=== PATIENT | female | born 1965 | race Caucasian/White ===

== ENCOUNTER 2017-07-20 06:31 | Day surgery (SDC) | payer MEDICARE ==
[2017-07-20] VITALS (11 sets, daily range): BP systolic 95–123; BP diastolic 37–76; Ht 170.2 cm; Wt 122.7 kg
[~2017-07-20] VITALS: Ht 170.2 cm; Wt 122.7 kg
--- NOTE | ~2017-07-20 | OP ---
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 POSTOPERATIVE DIAGNOSES: Osteophyte formation and disc herniation of C6-C7 with bilateral C7 radiculopathy and spinal cord compression. PROCEDURE: Anterior cervical discectomy with removal of osteophytes at C6-C7, PEEK interbody cage anterior cervical plate and screws, Biocell bone stem cell allograft, removal of osteophytes. SURGEON: Grace Kemp MD DESCRIPTION OF TECHNIQUE: After induction of general endotracheal anesthesia, the patient was positioned supine on the operating table at the inner scapular roll. The neck was prepped and draped in usual sterile fashion. Fluoroscopic x-ray and freer localized the C6-C7 interspace. A skin incision was carried out from the midline to the sternocleidomastoid muscle. Using a blunt and sharp dissection with Metzenbaum scissors, I proceeded in an avascular plane medial to the carotid sheath. The C6-C7 interspace was confirmed with fluoroscopic x-ray and a spinal needle. The longus colli muscles were elevated from bodies of C6 and C7. A self-retaining retractor was placed deep in longus colli muscles. [place] pins were placed at the bodies of C6 and C7. Disc space was incised with #11 blade. Series of pituitary rongeurs and curettes was used to remove the disc material at C6-C7. The endplates were prepared with curettes. A microscope and Midas Raheel drill were used to remove the osteophytes posteriorly. A Cloward rongeur was used to remove the posterior longitudinal ligament and performed a foraminotomy on both sides. The foramina and the central dura was decompressed well at the conclusion of this. A PEEK interbody cage was placed in the disc space under distraction. Prior to this, the cage was filled with Biocell bone stem cell allograft. After this, a separate anterior cervical plate was used to span the C6-C7 interspace. Self-drilling screws were placed into the bodies of C6 and C7. Locking cam was tightened down over the screw heads. Good position of the hardware was confirmed with fluoroscopic x-ray. Meticulous hemostasis was maintained throughout the wound and the wound was irrigated with copious amounts of Ancef irrigant solution. The platysma and subdermal layer were closed with interrupted 3-0 Vicryl suture. The skin was reapproximated with Steri-Strips and benzoin. A sterile dressing was applied to the wound. The patient was awakened in good condition and taken to recovery. All counts were reported as correct. Estimated blood loss was minimal. TRANSINT:[id number] Voice Confirmation ID: [id number] DOCUMENT ID: [id number] OPERATIVE REPORT [id number] JAIDA ATKINSON JOHN MD at 1606 CC: [id number] DICTATION DATE: 07/25/17 09 DRY PAN FEEDER: 07/25/17 1134 [facility] 07/21/17 [address] [place] [address]
[~2017-07-20 06:31] MED LIST: ASPIRIN EC81 M1 PO; BACLOFEN10 MG PO; COREG6.25 MG PO; CRESTOR10 MG PO; EFFEXOR50 MG PO; HYDROCODONE-APA1 TAB PO; INSULIN PUMP; NEURONTIN600 MG PO; PAROXETINE HCL10 MG PO; PROTONIX40 MG PO; SINGULAIR10 MG PO; VALIUM 2 MG TAB2 MG PO; WELLBUTRIN SR150 MG PO; ZYRTEC10 MG PO
[2017-07-20 07:14] LABS: HEMATOCRIT 40.4 % (36.0-48.0); HEMOGLOBIN 13.4 g/dL (12-16); MCH 27.7 pg (26.0-34.0); MCHC 33.2 g/dL (31.0-37.0); MCV 83.6 fL (80.0-100.0); MEAN PLATELET VOLUME 9.1 fL (7.4-10.4); RBC 4.83 10x6/uL (4.00-5.40); RDW 16.4 % (11.5-14.5); WBC 16.1 10x3/uL (4.8-10.8)
[2017-07-20 07:28] LABS: CALCIUM 8.4 mg/dL (8.5-10.1); CARBON DIOXIDE 20.5 mmol/L (21.0-32.0); CREATININE - SERUM 1.3 mg/dL (0.6-1.3); POTASSIUM - SERUM 3.5 mmol/L (3.5-5.1)
[2017-07-21 04:22] VITALS: BP 131/60
[2017-07-21 07:42] VITALS: BP 102/62
== END 2017-07-21 11:11 | disposition home or self-care (01) ==
LOC: D.SDCHOLD 06:31 → D.OPS 06:31 → D.MS 06:31 → D.SDCHOLD 07:30 → EDSTATUS 07:30 → D.SDCHOLD 09:00 → D.MS 13:40 → D.SDCHOLD 13:40 → D.MS 07-21 11:11 → D.OPS 07-21 11:11
PROVIDERS: Anesthesiology
DX: M54.12 Radiculopathy, cervical region (principal); F17.200 Nicotine dependence, unspecified, uncomplicated; J45.909 Unspecified asthma, uncomplicated; G47.30 Sleep apnea, unspecified; I10 Essential (primary) hypertension; E11.9 Type 2 diabetes mellitus without complications; K21.9 Gastro-esophageal reflux disease without esophagitis; E66.01 Morbid (severe) obesity due to excess calories; Z01.812 Encounter for preprocedural laboratory examination

== ENCOUNTER 2019-01-31 07:24 | Day surgery (SDC) | payer MEDICARE ==
[2019-01-28 14:44] LABS: HEMATOCRIT 42.3 % (36.0-48.0); HEMOGLOBIN 14.4 g/dL (12-16); MCH 29.2 pg (26.0-34.0); MCV 85.8 fL (80.0-100.0); MEAN PLATELET VOLUME 9.3 fL (7.4-10.4); RBC 4.93 10x6/uL (4.00-5.40); RDW 15.8 % (11.5-14.5); WBC 9.8 10x3/uL (4.8-10.8)
[2019-01-28 15:23] LABS: ANION GAP 18.4 mmol/L (8-16); CARBON DIOXIDE 22.1 mmol/L (21.0-32.0); CREATININE - SERUM 1.5 mg/dL (0.6-1.3); POTASSIUM - SERUM 4.5 mmol/L (3.5-5.1)
[~2019-01-31] VITALS: Ht 170.2 cm; Wt 153.2 kg
[2019-01-31] VITALS (20 sets, daily range): BP systolic 116–159; BP diastolic 52–84; Ht 170.2 cm; Wt 153.2 kg
[~2019-01-31 07:24] MED LIST changes: +BUSPAR10 MG PO; +CRESTOR40 MG PO; +EFFEXOR XR75 MG PO; +FENOFIBRATE160 MG PO; +LAMICTAL100 MG PO; +LOTENSIN 10 MG10 MG PO; +REGLAN10 MG PO; -VALIUM 2 MG TAB2 MG PO; +VALIUM5 MG PO; +ZETIA10 MG PO
[2019-01-31] MEDS ORDERED: HYDROCODON-ACE1 EA10 PO (08:10)
--- NOTE | 2019-01-31 08:53 | NUR ---
POSITIVE SUICIDE SCREENING FOR LIFETIME, SARABJIT RHODES EXECUTIVE SECRETARY NOTIFIED.
--- NOTE | 2019-01-31 08:55 | NUR ---
DR. BAEZ NOTIFIED AND REVIEWED PT'S BEHAVIOR AND ASSESSMENT RESULTS. PT IS A LOW RISK PER . STATED TO GIVE RESOURCES TO PT AT TIME OF DISCHARGE. NO FURTHER ORDERS AT THIS TIME. RESOURCES REVIEWED WITH PT AND SHE VERBALIZIED UNDERSTANDING.
[2019-01-31 09:07] LABS: HCG URINE NEGATIVE (NEGATIVE)
--- NOTE | 2019-01-31 15:02 | NUR ---
1415-ADMITTED PER FLOW SHEET-PT ALERT-FANILY NOTIFIED OF LOCATION AND DIRECTION- AT BEDSIDE-PLACED ARTIFICIAL LEGS ON FOR PT-STATES PREVENTS SWELLING.-QUESTIONED ABLUT INSULIN PUMP STRESSED NOT TO ATTACH AT THIS TIME-WILL FOLLOW FSBS SCALE-DUE TO IV STEROID ADMINISTRATION PT VERBALLY AGREEABLE TO SAME
--- NOTE | 2019-01-31 15:10 | NUR ---
O2 AT 2L-O2 SAT 88-RESPONDS EASILY DENIES SOB
--- NOTE | 2019-01-31 19:05 | NUR ---
SHIFT ASSESSMENT COMPLETE. PT IS A&O X4 WITH NO COMPLAINTS OF PAIN OR DISCOMFORT. PERRLA, 3 MM, BRISK REACTION TO LIGHT. MUCOUS MEMBRANES MOIST, ENDENTULOUS. RR SHALLOW, CLEAR LUNG SOUNDS HEARD BILAT THROUGHOUT UPPER LOBES, DIMINISHED AT THE BASES, NC ON @ 2 L/MIN. S1S2 AUDIBLE, HR 86 NSR SHOWING ON THE MONITOR. R FA PIV INFUSING 1/2 NS @ 50 ML/HR, PIV SITE WNL. ABD LARGE AND FIRM, BS HYPOACTIVE X4. COMPLETE LINEN CHANGE PROVIDED, URINE NOTED ON PADS. PT ABLE TO ASSIST WITH TURNING. B/L BKA NOTED. PT WISHES TO LEAVE SLEEVES ON FROM HOME. R NECK INCISION NOTED, DRESSING CDI, NO S/S OF INFECTION. CALL LIGHT IN REACH, BED IN LOWEST POSITION. WILL CONT WITH POC. SHE DENIES ANY FURTHER NEEDS.
--- NOTE | 2019-01-31 21:30 | NUR ---
FSBS 404, PAGING DR. PORTER.
--- NOTE | 2019-01-31 21:38 | NUR ---
SPOKE WITH DR. PORTER. STOPPING DECADRON. NO FURTHER ORDERS.
--- NOTE | 2019-01-31 22:30 | NUR ---
PT STATES THAT SHE IS HAVING NECK AND SHOULDER PAIN. PRN NORCO-5 ADMIN PER ORDERS.
--- NOTE | 2019-01-31 23:00 | NUR ---
REASSESSMENT COMPLETE. COMPLETE LINEN CHANGE PROVIDED. 400 ML CLEAR YELLOW URINE COLLECTED IN BED SALDANA. SHE STATES THAT HER PAIN LEVEL IS NOW A 2/10 AND TOLERABLE. NO FURTHER CHANGES IN PT CONDITION. VSS. SEE FLOWSHEET FOR FURTHER DETAILS. WILL CONT WITH POC.
[2019-02-01] VITALS (14 sets, daily range): BP systolic 127–197; BP diastolic 36–96
--- NOTE | 2019-02-01 01:00 | NUR ---
COMPLETE LINEN CHANGE PROVIDED. LARGE AMOUNT OF CLEAR YELLOW URINE LEAKED FROM BED SALDANA. PT ABLE TO ASSIST WITH TURNING. VSS. WILL CONT WITH POC.
--- NOTE | 2019-02-01 03:00 | NUR ---
ASSISTED WITH PROSETHETIC LEG ATTACHMENTS. SOFT C-COLLAR ON, PT MOVED FROM BED TO WHEELCHAIR, PARTIAL ASSIST. PT USING RESTROOM AT THIS TIME. COMPLETE LINEN CHANGE PROVIDED. PT IS NOW SITTING UP IN CHAIR WATCHING TV. SHE DENIES ANY NEEDS AND STATES THAT SHE DOES NOT HAVE ANY PAIN OR DISCOMFORT. O2 REMOVED, O2 SAT 94-96% ON MONITOR. GLASSES PULLED FROM PT BAG PER REQUEST AND ARE NOW SITTING ON BEDSIDE TABLE. NO FURTHER REQUESTS AT THIS TIME. VSS. CALL LIGHT IN REACH, BED IN LOWEST POSITION. WILL CONT WITH POC.
--- NOTE | 2019-02-01 05:00 | NUR ---
ASSISTED PT TO RESTROOM X1 ASSIST. HER XFER IS STRONG. PT BACK IN WHEELCHAIR WITH C-COLLAR ON. REFRESHMENTS BROUGHT TO BEDSIDE. NO FURTHER NEEDS AT THIS TIME. WILL CONT WITH POC.
--- NOTE | 2019-02-01 06:42 | NUR ---
NOTIFIED DR. PORTER THAT FSBS 427. DR. PORTER STATED THAT IT WAS OKAY FOR PT TO PUT ON INSULIN PUMP + 12 UN SLIDING SCALE.
--- NOTE | 2019-02-01 08:11 | NUR ---
pt up in her w/c. BREAKFAST TRAY SERVED AND PT EATING W/O PROBLEMS. ASST TO BATHROOM TO VOID. PT TRANSFERS WITH PROSTETIC LYMBS WELL. ASST PT WITH HER INSULIN PUMP. FSBS 493 ON HER MONITOR. PT GAVE INSULIN BOLUS. 50U U500. WILL MONITOR FOR HYPOGLYCEMIA.
--- NOTE | 2019-02-01 10:27 | NUR ---
ASST TO BATHROOM AGAIN TO VOID. PT TRANSFERS SELF WELL. FAMILY AT BS. PO PAIN MED CONTROLS PAIN WELL PER PT.
[2019-02-01] MEDS ORDERED: HYDROCODON-ACE1 EA10 PO (12:14)
[2019-02-01] MEDS ORDERED: ROBAXIN500 MG (12:14)
--- NOTE | 2019-02-01 13:14 | NUR ---
DR PORTER SPOKE TO FAMILY AND PT AT RE: DC INSTRUCTIONS. RX GIVEN ALONG WITH VERBAL AND WRITTEN DC INSTRUCTIONS. PT AND HER FAMILY VERB UNDERSTANDING OF ALL INSTRUCTIONS. PT DC HOME WITH HER FAMILY.
--- NOTE | 2019-02-11 20:19 | OP ---
PATIENT NAME: JAIDA ATKINSON MEDICAL RECORD: [id number] :63 LOCATION:[facility] ADMISSION DATE: SURGEON: GRACE KEMP MD DATE OF OPERATION: 01/31/2019 DATE OF SERVICE: 01/31/2019 PREOPERATIVE DIAGNOSES: Disc herniation and osteophyte formation with spinal cord compression, C3-C4. POSTOPERATIVE DIAGNOSES: Disc herniation and osteophyte formation with spinal cord compression, C3-C4. PROCEDURE: Anterior cervical discectomy and fusion at C3-C4 with removal of osteophytes and discectomy, Zavation anterior cervical plate and screws. SURGEON: Grace Kemp MD DESCRIPTION AND TECHNIQUE: After induction of general endotracheal anesthesia, the patient was positioned supine on the operating table. Neck was prepped and draped in the usual sterile fashion. Fluoroscopic x-ray and [place] dissector localized the C3-C4 interspace. After infiltration of 1:100,000 epinephrine and 1% lidocaine, a transverse skin incision was carried out from the midline to the sternocleidomastoid muscle. The platysma was divided with sharp dissection with #15-blade. Using blunt and sharp dissection with Metzenbaum scissors, I proceeded in avascular plane medial to the carotid sheath. The C3-C4 interspace was identified with fluoroscopic x-ray and a spinal needle. The longus colli muscles are elevated from bodies of C3 and C4, osteophytes removed anteriorly with [place] rongeurs. Self-retaining retractors was placed deep to the longus colli muscles. [place] distracting pins were placed by the C3 and C4. The disc space was incised under distraction. Disc material was removed with the pituitary rongeurs and curettes. A microscope and Midas Raheel drill were used to remove osteophytes posteriorly. The posterior longitudinal ligament was removed with Cloward rongeurs. Following this, the dura was decompressed well. Both foramina were decompressed with a good decompression of dura and both foramina. A PEEK interbody cage was used to span the C3-C4 interspace. Prior to this, it was filled with Jenn bone allograft with stem cells. A Zavation anterior cervical plate and screws was used to span the C3-C4 interspace. Locking cams were tightened down over the screw heads. Good position of the hardware was confirmed with fluoroscopic x-ray. Meticulous hemostasis was maintained throughout the wound. Wound was irrigated with copious amounts of Ancef irrigant solution. The platysma and subdermal layer closed with interrupted 3-0 Vicryl sutures. The skin was closed with dorys. A sterile dressing was applied to the wound. The patient was awakened in good condition and taken to recovery. All counts were reported as correct. Estimated blood loss was minimal. TRANSINT:[id number] Voice Confirmation ID: [id number] DOCUMENT ID: [id number] OPERATIVE REPORT [id number] JAIDA ATKINSON JOHN MD at 2019 CC: [id number] DICTATION DATE: 02/06/19 1235 PERSONAL COACH: 02/06/19 1303 [facility] 02/01/19 [id number] [place] [address]
== END 2019-02-01 13:18 | disposition home or self-care (01) ==
LOC: D.OPS 07:24 → D.PAN 09:45 → D.CVICU 13:34 → D.OPS 02-01 13:18
PROVIDERS: Anesthesiology; ATTEND Neurological Surgery
DX: M50.01 Cervical disc disorder with myelopathy, high cervical region (principal); E10.9 Type 1 diabetes mellitus without complications; E78.5 Hyperlipidemia, unspecified; K21.9 Gastro-esophageal reflux disease without esophagitis